=== PATIENT | male | born 1950 | race Caucasian/White ===

== ENCOUNTER 2017-05-30 01:23 | Emergency (ER) | payer MEDICARE, OTHER ==
[~2017-05-30] VITALS: Ht 175.3 cm; Wt 74.0 kg
[~2017-05-30 01:23] MED LIST: ASPI-676 PO; FAMILY TO BRING MEDS; IBUP100T31 PO; METOPROLOL
[2017-05-30 01:38] VITALS: Ht 175.3 cm; Wt 74.0 kg
[2017-05-30] MEDS ORDERED: DIPHENHYDRAMINE 50 MG INJ IV STA (02:29)
[2017-05-30] MEDS ORDERED: ACETAMINOPHEN 325 MG TAB PO STA (02:29)
[2017-05-30] MEDS ORDERED: SOD CHLORIDE 0.9% 1,000 ML IV STA (02:29)
[2017-05-30] MEDS ORDERED: METOCLOPRAMIDE 10 MG INJ IV STA (02:29)
[2017-05-30] MEDS ORDERED: morphine 4 MG/ML VIAL IV STA (02:29)
--- NOTE | 2017-05-30 02:55 | ERD ---
ER Documentation Chief Complaint Date/Time DATE: 05/30/17 TIME: 02:44 Chief Complaint Pt c/o bear and has hx of migraine HPI 67-year-old female with a history of prior IN and chronic migraines presents to the emergency department for complaints of left-sided severe headache with associated photophobia, nausea, and vomiting 2 since 9:00 last night. Patient states a history of trigeminal neuralgia for which he treats his symptoms with ibuprofen. Patient has had multiple prior episodes with similar symptoms. He states his last head CT was performed within the year. He denies any chest pain , shortness of breath, Numbness, weakness, abdominal pain, diarrhea. ROS All systems reviewed and are negative except as per history of present illness. Medications Home Meds Reported Medications [Family To Bring Meds] No Conflict Check 07/09/13 Ibuprofen (Ibuprofen) 100 Mg Tablet, 200 MG PO DAILY 05/07/11 Aspirin (Bhupendra Child) 81 Mg Chew, 81 MG PO DAILY 05/07/11 [Metoprolol] No Conflict Check 05/07/11 Allergies Allergies: Coded Allergies: No Known Allergies (Verified Allergy, Unknown, 05/07/14) PMhx/Soc History of Surgery: Yes (stent placement 2002, stomach surgery) Anesthesia Reaction: No Hx Neurological Disorder: No Hx Respiratory Disorders: No Hx Cardiac Disorders: Yes (HTN) Hx Psychiatric Problems: No Hx Miscellaneous Medical Probl: Yes (CAD,Htn,migraine BEAR,trigeminal neuralgia) Hx Alcohol Use: No Hx Substance Use: No Hx Tobacco Use: Yes (DAILY 1 pack ) Physical Exam Vitals Vital Signs Date Time Temp Pulse Resp B/P Pulse Ox O2 Delivery O2 Flow Rate FiO2 05/30/17 01:38 97.7 89 18 129/85 100 Physical Exam Const: Well-developed, well-nourished, in moderate distress Head: Atraumatic Eyes: Normal Conjunctiva, Photophobia present. EOMI. PERRLA. ENT: Normal External Ears, Nose and Mouth. Neck: Full range of motion..~ No meningismus. Resp: Clear to auscultation bilaterally Cardio: Regular rate and rhythm, no murmurs Abd: Soft, non tender, non distended. Normal bowel sounds Skin: No petechiae or rashes Back: No midline or flank tenderness Ext: No cyanosis, or edema Neur: Awake and alert. Cranial nerves II through XII intact. Psych: Normal Mood and Affect Results 24 hrs Current Medications Medications (Trade) Dose Ordered Sig/Kaitlin Route PRN Reason Start Time Stop Time Status Last Admin Dose Admin Sodium Chloride (NS) 1,000 ml @ 1,000 mls/hr Q1H STAT IV 05/30/17 02:29 05/30/17 03:28 Acetaminophen (Tylenol Tab) 650 mg ONCE STAT PO 05/30/17 02:29 05/30/17 02:32 DC Metoclopramide HCl (Reglan) 10 mg ONCE STAT IV 05/30/17 02:29 05/30/17 02:32 DC Morphine Sulfate (morphine) 4 mg ONCE STAT IV 05/30/17 02:29 05/30/17 02:32 DC Diphenhydramine HCl (Benadryl) 25 mg ONCE STAT IV 05/30/17 02:29 05/30/17 02:32 DC Procedures/MDM This is a 67-year-old male with a history of chronic migraines, IN, and trigeminal neuralgia who presents for severe left-sided headache with photophobia and vomiting 2 since today. Patient denied numbness, weakness, and was without obvious neurologic deficit on exam. I evaluated the patient upon arrival to the emergency department and recommended for him to receive IV fluids and pain medicine. I also recommended a repeat head CT to rule out possible stroke. Patient stated a history of IN but denied chest pain or shortness of breath. Immediately after my evaluation, patient and son stated that they did not wish to wait any longer in the emergency department for pain medication and workup. Myself and nursing staff strongly urged the patient to stay so that a complete assessment may be performed. Both patient and son refused and stated they wanted to leave. Patient and family signed an AMA form and expressed understanding of risks associated with an incomplete evaluation. Recommended to return immediately if symptoms do not improve. I instructed him to call his neurologist As soon as possible. Departure Diagnosis: Primary Impression: Headache Headache type: unspecified Headache chronicity pattern: acute headache Intractability: not intractable Qualified Code: R51 - Acute nonintractable headache, unspecified headache type Additional Impression: Left against medical advice MILTON JEWELL PA-C May 30, 2017 02:55
== END 2017-05-30 02:49 | disposition left against medical advice (07) ==
LOC: FTE 01:23
DX: R51 Headache (principal); I10 Essential (primary) hypertension; I25.10 Atherosclerotic heart disease of native coronary artery without angina pectoris; F17.210 Nicotine dependence, cigarettes, uncomplicated; Z79.82 Long term (current) use of aspirin; Z98.61 Coronary angioplasty status
CPT/HCPCS: 99282; J7030

== ENCOUNTER 2018-10-09 20:40 | Emergency (ER) | payer MEDICARE, OTHER ==
[~2018-10-09] VITALS: Ht 172.7 cm; Wt 76.8 kg
[2018-10-09 21:04] VITALS: Ht 172.7 cm; Wt 76.8 kg
[2018-10-09] MEDS ORDERED: IOHEXOL 100 ML ONE (21:19)
[2018-10-09] MEDS ORDERED: SOD CHLORIDE 0.9% 100 ML ONE (21:19)
[2018-10-09] MEDS ORDERED: IBUP-1542 PO (21:27)
[2018-10-09] MEDS ORDERED: ASPI-817 PO (21:28)
[2018-10-09] MEDS ORDERED: METF500T24 PO (21:28)
[2018-10-09] MEDS ORDERED: TAMS0.4C2 PO (21:28)
[2018-10-09] MEDS ORDERED: DONE10TA7 PO (21:29)
[2018-10-09] MEDS ORDERED: ESOM40CA PO (21:29)
[2018-10-09] MEDS ORDERED: ALTEPLASE 100 MG INJ IV* ONE (21:30)
[2018-10-09] MEDS ORDERED: SOD CHLORIDE 0.9% 50 ML IV ONE (21:30)
[2018-10-09] MEDS ORDERED: LYRI100 PO (21:30)
[2018-10-09] MEDS ORDERED: ALTEPLASE (tPA) 1 MG/ML BOLUS SYG IV* ONE (21:30)
[2018-10-09] MEDS ORDERED: CLOP75TA19 PO (21:30)
[2018-10-09] MEDS ORDERED: ASPIRIN 81 MG TAB PO ONE (21:30)
[2018-10-09] MEDS ORDERED: FURO20TA3 PO (21:31)
[2018-10-09] MEDS ORDERED: SPIR25TA PO (21:31)
[2018-10-09] MEDS ORDERED: LOSA25TA12 PO (21:31)
[2018-10-09] MEDS ORDERED: ADV25050 INHALATION (21:32)
[2018-10-09] MEDS ORDERED: CARV6.2579 PO (21:32)
[2018-10-09] MEDS ORDERED: ONDANSETRON 4 MG INJ IV STA (21:32)
[2018-10-09] MEDS ORDERED: CARB200T43 PO (21:33)
[2018-10-09] MEDS ORDERED: ATEN50TA PO (21:34)
[2018-10-09] MEDS ORDERED: ROSU10TA55 PO (21:34)
[2018-10-09] MEDS ORDERED: LUBI24CA7 PO (21:35)
[2018-10-09 21:50] VITALS: BP 136/63; PULSE 106; RESP 18
--- NOTE | 2018-10-09 22:07 | CONS ---
DATE OF ADMISSION: 10/09/2018 DATE OF CONSULTATION: HISTORY OF PRESENT ILLNESS: This is a 68-year-old gentleman with past medical history of recent stro ke in 07/20/2018, coronary artery disease who presents after acute onset of left facial weakness and dysarthria at 6:00 p.m. The patient had previously had a stroke at [facility] on 07/20/20 18. The patient's symptoms cleared completely. The patient has been on aspirin and Plavix since the n. His last known well at 6:00 p.m. at which time the symptoms onset. He came to the emergency depa rtment where a noncontrast head CT did not show any types of hemorrhage, but did show a right M1 occl usion. Outpatient full NIH stroke scale score completed. The patient scored 4 point for dysarthria, 2 points for facial weakness and 1 point for left arm drift. The patient was not a tPA candidate gi eulalia his recent stroke. I would recommend allowing the patient to be permissively hypertensive hydrat ing the patient with saline and transferred immediately to a comprehensive stroke center. The patient's blood pressure is 152/74, his pulse rate was 95. His blood sugar was within normal ran ge. I coordinated my care and discussed the case with the patient's emergency department physician. Dictated By: TREVA DECKER CM/GALDINO Conf#: [id number] DID#: [id number]
--- NOTE | 2018-10-09 22:28 | ERD ---
ER Documentation Chief Complaint Chief Complaint DOUGLAS OROURKE from home,left side facial droop, left side weakness,c/o BEAR HPI 68-year-old male who presents via EMS for possible stroke. Initial history is somewhat convoluted however after further discussion and family arrival the patient's last known well time is 6:52 PM. The patient had sudden onset left facial droop difficulty moving the left arm and slurred speech. Upon arrival the patient was taken immediately to CT scan. Code stroke was initiated prior to arrival. Patient denies any chest pain or headache. It should be noted that the patient had an acute ischemic stroke less than 3 months ago at [facility]. This was later confirmed by family. ROS All systems reviewed and are negative except as per history of present illness. Medications Home Meds Reported Medications Lubiprostone* (Amitiza*) 24 Mcg Capsule, 24 MCG PO BID, #60 CAP 10/09/18 Rosuvastatin Calcium* (Crestor*) 10 Mg Tablet, 10 MG PO QHS, #30 TAB 10/09/18 Atenolol* (Atenolol*) 50 Mg Tablet, 50 MG PO DAILY, #30 TAB 10/09/18 Carbamazepine* (Carbamazepine* XR) 200 Mg Tab.er.12h, 200 MG PO Q12, #60 TAB.SA 10/09/18 Salmeterol Xinaf/Fluticasone* (Advair*) 250-50 Diskus Inhaler, 1 INH INHALATION BID, #1 INHALER 10/09/18 Carvedilol* (Carvedilol*) 6.25 Mg Tablet, 6.25 MG PO BID, #60 TAB 10/09/18 Losartan Potassium* (Losartan Potassium*) 25 Mg Tablet, 25 MG PO DAILY, TAB 10/09/18 Furosemide* (Furosemide*) 20 Mg Tablet, 20 MG PO DAILY, #60 TAB 10/09/18 Spironolactone* (Aldactone*) 25 Mg Tablet, 25 MG PO DAILY, #30 TAB 10/09/18 Clopidogrel Bisulfate* (Clopidogrel Bisulfate*) 75 Mg Tablet, 75 MG PO DAILY, #30 TAB 10/09/18 Pregabalin* (Lyrica*) 100 Mg Capsule, 100 MG PO DAILY, CAP 10/09/18 Esomeprazole Mag Trihydrate (Nexium) 40 Mg Capsule.dr, 40 MG PO DAILY, #30 CAP 10/09/18 Donepezil* (Aricept*) 10 Mg Tablet, 10 MG PO DAILY, TAB 10/09/18 Tamsulosin Hcl* (Tamsulosin Hcl*) 0.4 Mg Cap.er.24h, 0.4 MG PO HS, CAP 10/09/18 Aspirin* (Aspirin* EC) 81 Mg Tablet.dr, 81 MG PO DAILY, TAB 10/09/18 Metformin Hcl* (Metformin Hcl*) 500 Mg Tablet, 500 MG PO WITH BREAKFAST DINNE, #60 TAB 10/09/18 Ibuprofen* (Ibuprofen*) 600 Mg Tablet, 600 MG PO Q6H, TAB 10/09/18 Discontinued Reported Medications [Family To Bring Meds] No Conflict Check 07/09/13 Ibuprofen (Ibuprofen) 100 Mg Tablet, 200 MG PO DAILY 05/07/11 Aspirin (Bhupendra Child) 81 Mg Chew, 81 MG PO DAILY 05/07/11 [Metoprolol] No Conflict Check 05/07/11 Allergies Allergies: Coded Allergies: No Known Allergies (Verified Allergy, Unknown, 10/09/18) PMhx/Soc History of Surgery: Yes (stent placement 2002, stomach surgery) Anesthesia Reaction: No Hx Neurological Disorder: No Hx Respiratory Disorders: No Hx Cardiac Disorders: Yes (HTN) Hx Psychiatric Problems: No Hx Miscellaneous Medical Probl: Yes (CAD,Htn,migraine BEAR,trigeminal neuralgia) Hx Alcohol Use: No Hx Substance Use: No Hx Tobacco Use: Yes (DAILY 1 pack ) Smoking Status: Current every day smoker FmHx Family History: No diabetes Physical Exam Vitals Vital Signs Date Temp Pulse Resp B/P (MAP) Pulse Ox O2 O2 Flow FiO2 Time Delivery Rate 10/09/18 106 18 136/63 98 Room Air 21:50 (87) 10/09/18 97.7 108 18 150/74 97 21:04 (99) Physical Exam General: Well developed, well nourished, no acute distress Head: Normocephalic, atraumatic. Eyes: Pupils equally reactive, EOM intact ENT: Moist mucous membranes Neck: Supple, no lymphadenopathy Respiratory: Lungs clear bilaterally, no distress Cardiovascular: RRR, no murmurs, rubs, or gallops Abdominal: Soft, non-tender, non-distended, no peritoneal signs : Deferred MSK: No edema, no unilateral swelling, 5/5 strength Neurologic: The patient is alert, interactive. He has a left-sided facial droop sparing the forehead. He has weakness of his left upper extremity and slurred speech. The patient's weakness of the left upper extremity was initially fla ccid but did seem to improve on repeat examination and he is able to move it against gravity. Skin: No rash Psych: Normal mood Result Diagram: 10/09/18204610/09/182046 Results 24 hrs Laboratory Tests Test 10/09/18 20:47 10/09/18 20:54 10/09/18 21:09 White Blood Count 8.1 10^3/ul Red Blood Count 4.10 10^6/ul Hemoglobin 10.9 g/dl Hematocrit 34.7 % Mean Corpuscular Volume 84.6 fl Mean Corpuscular Hemoglobin 26.6 pg Mean Corpuscular 31.4 g/dl Hemoglobin Concent Red Cell Distribution Width 15.1 % Platelet Count 305 10^3/UL Mean Platelet Volume 10.3 fl Immature Granulocytes % 0.200 % Neutrophils % 64.7 % Lymphocytes % 24.9 % Monocytes % 8.5 % Eosinophils % 1.2 % Basophils % 0.5 % Nucleated Red Blood Cells % 0.0 /100WBC Immature Granulocytes # 0.020 10^3/ul Neutrophils # 5.3 10^3/ul Lymphocytes # 2.0 10^3/ul Monocytes # 0.7 10^3/ul Eosinophils # 0.1 10^3/ul Basophils # 0.0 10^3/ul Nucleated Red Blood Cells # 0.0 10^3/ul Prothrombin Time 12.7 Sec Prothrombin Time Ratio 1.0 INR International Normalized Ratio 0.94 Activated Partial Thromboplast 31.3 Sec Time Sodium Level 139 mmol/L Potassium Level 4.6 mmol/L Chloride Level 108 mmol/L Carbon Dioxide Level 24 mmol/L Anion Gap 7 Blood Urea Nitrogen 18 mg/dl Creatinine 1.15 mg/dl Est Glomerular Filtrat Rate mL/min > 60 mL/min Glucose Level 173 mg/dl Hemoglobin A1c 6.0 % Calcium Level 9.1 mg/dl Total Bilirubin 0.0 mg/dl Direct Bilirubin 0.00 mg/dl Indirect Bilirubin 0.0 mg/dl Aspartate Amino Transf (AST/SGOT) 26 IU/L Alanine 19 IU/L Aminotransferase (ALT/SGPT) Alkaline Phosphatase 72 IU/L Creatine Kinase 69 IU/L Creatine Kinase Index 1.4 Creatinine Kinase MB (Mass) 0.95 ng/ml Troponin I 0.014 ng/ml Total Protein 7.3 g/dl Albumin 4.2 g/dl Globulin 3.10 g/dl Albumin/Globulin Ratio 1.35 Triglycerides Level 371 mg/dl Cholesterol Level 229 mg/dl LDL Cholesterol, Calculated 112 mg/dl HDL Cholesterol 43 mg/dl Cholesterol/HDL Ratio 5.3 RATIO Ethyl Alcohol Level < 10.0 mg/dl POC Venous Lactate 1.5 mmol/L Bedside Glucose 161 mg/dL Current Medications Medications Dose Sig/Kaitlin Start Time Status Last (Trade) Ordered Route PRN Stop Time Admin Dose Reason Admin Alteplase, 6.9 mg BOLUS OVER 1 10/09/18 DC Recombinant MIN ONCE 21:30 (Activase) IV* 10/09/18 21:30 Alteplase, 62.2 mg ISCHEMIC 10/09/18 DC Recombinant STROKE ONCE 21:30 (Activase) IV* 10/09/18 21:30 Sodium 50 ml @ 0 FLUSH AFTER 10/09/18 DC Chloride mls/hr TPA ONCE IV 21:30 10/09/18 21:30 IV Flush 10 ml STK-MED 10/09/18 DC (NS 10 ml) ONCE .ROUTE 21:19 10/09/18 21:20 Sodium 100 ml @ ud STK-MED 10/09/18 DC Chloride ONCE .ROUTE 21:19 10/09/18 21:20 Iohexol 100 ml @ ud STK-MED 10/09/18 DC ONCE .ROUTE 21:19 10/09/18 21:20 Aspirin 162 mg ONCE ONCE 10/09/18 DC 10/09/18 (Aspirin) PO 21:30 21:38 10/09/18 21:31 Ondansetron 4 mg ONCE STAT 10/09/18 DC 10/09/18 HCl (Zofran IV 21:32 21:38 Inj) 10/09/18 21:33 Procedures/MDM EKG, MONITORS, & DIAGNOSTIC IMAGING: EKG: I reviewed and interpreted a 12-lead EKG. Rhythm: Normal sinus rhythm Ectopy: None Arrhythmia: None Intervals: No abnormalities ST segments: No elevations or depressions T waves: No contiguous inversions Interpretation: No acute cardiac ischemia Chest x-ray: IMPRESSION: Cardiomegaly and mild pulmonary vascular congestion, with mild patchy air space disease. RPTAT: UU CT Brain: IMPRESSION: No there is subtle padilla-white matter distinction of the right temporal lobe suggesting an early ischemic stroke. Findings were discussed with Dr. Gil at 08:55 p.m. CTA Head and Neck: IMPRESSION: CT angiogram of the brain demonstrates complete occlusion of the right distal M1 segment as well as the P2 segment of the right origin DRILLER MULTIPLE SPINDLE consistent with intra-arterial thrombus. Calcific and non calcific plaque of the carotid bifurcations with no significant internal carotid artery origin stenosis. There are bilateral high grade stenoses of the external carotid artery origins. Findings were discussed with Dr. Lopez of the emergency room department at 09:10 p.m. RPTAT:[facility] LAB INTERPRETATION: * No evidence of infection * Normal lactic acid MEDICAL DECISION MAKING: The patient presents to the emergency room with acute stroke syndrome. The patient has left-sided deficits concerning for MCA stroke. EMS gave the report and a code stroke was initiated from the field. ER COURSE: Stroke assessment and timing: Last known well time: There was some initial concern about the last known well time. Initially it was reported at 7:32 PM. Then it was reported by EMS is p otentially 9 AM. However family later confirmed 6:52 PM Arrival to ED: 2039 Stroke code activation: [address] scan: [address]: 2057 Initial neurology discussion: 2045 NIHSS: 5 TPA decision-making: The patient is technically within the 4-1/2 window for acute TPA. However the family reports that the patient had an acute ischemic stroke less than 3 months ago. They state this was at [facility]. They gave me authorization to call the hospital to discuss MRI imaging. I spoke to the ER provider at that facility he states that on July 20 the patient had an acute ischemic right parietal deep white matter small vessel infarct. It did not appear that the patient received TPA. For this reason, Dr. Lozano feels that this is an absolute contraindication to TPA. He strongly recommends against TPA. We did have this conversation twice based on the fact that US he raised some concern about potentially giving TPA. However they did not request ed directly. I had further conversation with Dr. Lozano based on AHA guidelines in 2018. He again feels strongly that there is no good evidence that TPA should be given in these types of patients. Additionally there is still evidence that there is potential harm. Based on these recommendations he strongly recommends against TPA. Decision to forego TPA was made at 9:15 PM Interventional decision-making: The patient is a good candidate for interventional thrombectomy, large vessel occlusion is noted on CTA. Stroke neurologist on-call: Dr. Lozano Critical Care Note: Total time: 45 minutes Indication/Organ System Threat: Acute neurologic deficit and stroke code activation that requires emergent evaluation and assessment to prevent neurologic compromising collapse. I spent the above amount of critical care time with the patient, not including billable procedures. This included chart review, consultations, repeat bedside evaluations, and titration of appropriate medications to prevent cardiopulmonary or respiratory collapse. ASA given I kept the patient and/or family informed of laboratory and diagnostic imaging results throughout the emergency room course. The patient is a candidate to transfer to [facility] of stroke center. I spoke to Dr. Álvarez at 9:20pm who has accepted the case. DISPOSITION PLAN: Patient transferred to [facility] of stroke center CONSULTATION: As documented above Transport here to take the patient at 9:35 PM Departure Diagnosis: Primary Impression: Acute ischemic right MCA stroke Condition: Serious OSCAR GIL MD Oct 09, 2018 22:28
== END 2018-10-09 22:14 | disposition short-term general hospital (02) ==
LOC: E/R 20:40
DX: I63.511 Cerebral infarction due to unspecified occlusion or stenosis of right middle cerebral artery (principal); I10 Essential (primary) hypertension; I25.10 Atherosclerotic heart disease of native coronary artery without angina pectoris; F17.210 Nicotine dependence, cigarettes, uncomplicated; Z79.01 Long term (current) use of anticoagulants; Z79.82 Long term (current) use of aspirin; Z79.84 Long term (current) use of oral hypoglycemic drugs
CPT/HCPCS: 36415; 70450; 70496; 70498; 71045; 80053; 80061; 80307; 82550; 82553; 82962; 83036; 83605; 84484; 85025; 85610; 85730; 86850; 86900; 86901; 93005; 96374; 99291; J2405; Q9967; J2997